=== PATIENT | female | born 1990 | race Caucasian/White ===

== ENCOUNTER 2019-07-22 13:28 | Emergency (ER) | payer OTHER ==
[~2019-07-22] VITALS: Ht 157.5 cm; Wt 75.2 kg
[2019-07-22] MEDS ORDERED: BUPR8SUB SL (13:43)
[2019-07-22] MEDS ORDERED: ZOLO100T PO (13:43)
[2019-07-22 14:41] LABS: ALBUMIN 2.3 GM/DL (3.2-5.2); ALT/SGPT 60 U/L (12-78); BILIRUBIN,DIRECT 0.3 MG/DL (0.0-0.2); BILIRUBIN,TOTAL 0.4 MG/DL (0.2-1.0); BLOOD UREA NITROGEN 14 MG/DL (7-18); CALCIUM LEVEL 8.6 MG/DL (8.5-10.1); CARBON DIOXIDE LEVEL 26 MEQ/L (21-32); CHLORIDE LEVEL 104 MEQ/L (98-107); CREATININE FOR GFR 0.68 MG/DL (0.55-1.30); GLOMERULAR FILTRATION RATE > 60.0 (>60); GLUCOSE, FASTING 113 MG/DL (70-100); POTASSIUM SERUM 4.4 MEQ/L (3.5-5.1); SODIUM LEVEL 135 MEQ/L (136-145); TOTAL PROTEIN 6.1 GM/DL (6.4-8.2)
[2019-07-22] MEDS ORDERED: [UNRECOGNIZED DRUG - OTHER] IM ONE (15:15)
[2019-07-22] MEDS ORDERED: IMMUNE GLOBULIN 10% 0 GM in IV 1 EA IV SCH (15:15)
[2019-07-22 16:04] VITALS: BP 135/70
[2019-07-22] MEDS ORDERED: PRENTAB9 PO (19:24)
[2019-07-23 08:30] LABS: HEPATITIS B SURFACE ANTIGEN NEGATIVE (NEGATIVE)
[2019-07-23 08:57] LABS: HEPATITIS B CORE ANTIBODY IGM NEGATIVE (NEGATIVE)
[2019-07-23 08:59] LABS: HEPATITIS A ANTIBODY IGM NEGATIVE (NEGATIVE)
[2019-07-23 09:38] LABS: HEPATITIS C VIRUS ABY INDEX > 11.0 INDEX (<0.8)
== END 2019-07-22 16:05 | disposition home or self-care (01) ==
LOC: M ED 13:28
DX: Z20.5 Contact with and (suspected) exposure to viral hepatitis (principal); B18.2 Chronic viral hepatitis C; O99.343 Other mental disorders complicating pregnancy, third trimester; Z3A.39 39 weeks gestation of pregnancy; Z79.899 Other long term (current) drug therapy

== ENCOUNTER 2019-07-22 18:25 | Inpatient (IN) | payer OTHER ==
[~2019-07-22] VITALS: Ht 160 cm; Wt 74.6 kg
[~2019-07-22 18:25] MED LIST: BUPR8SUB SL; ZOLO100T PO
[2019-07-22 18:40] VITALS: BP 129/78
[2019-07-22] MEDS ORDERED: PRENTAB9 PO (19:24)
[2019-07-22 20:43] LABS: HEMATOCRIT 36.3 % (36.0-47.0); HEMOGLOBIN 12.4 g/dl (12.0-15.5); MEAN CORPUSCULAR HEMOGLOBIN 30.3 pg (27.0-33.0); MEAN CORPUSCULAR HGB CONC 34.2 g/dl (32.0-36.5); MEAN CORPUSCULAR VOLUME 88.8 fl (80.0-96.0); PLATELET COUNT, AUTOMATED 164 10^3/uL (150-450); RED BLOOD COUNT 4.09 10^6/uL (4.00-5.40); WHITE BLOOD COUNT 8.8 10^3/uL (4.0-10.0)
[2019-07-22] MEDS ORDERED: OXYTOCIN 30 UNITS IN 0.9% NaCl 500ML IV BAG (J2590) As Ordered ONE (22:00)
--- NOTE | 2019-07-22 22:06 | HPEPDOC ---
Obstetrical History & Physical General Date of Admission Jul 22, 2019 at 19:22 History of Present Illness 29-year-old 5, para 2 at 39 weeks 4 days estimated gestational age with EDC of 07/24/2019, presents with complaints of contractions. She presents as an unregistered patient with limited care. She is been incarcerated during this and currently is part of substance abuse treatment program. She reports contractions throughout the day that of increasing intensity and frequency. She reports active movements. Denies any vaginal bleeding or leakage fluid. Chief Complaint: Contractions, term Information Provided By: Patient Age: 29 : 5 Term: 2 Livin Care Care: Limited Care Dating Final EDC: Jul 24, 2019 Past Medical History Past Obstetrical History : Past Obstetrical History: Multigravida Type of Delivery: Spontaneous Vaginal Del. Complications: No Past Medical History Medical History Hepatitis C and substance abuse Surgical History: Tonsilectomy Social History Marital Status: Single Psychosocial History: No pertinent psych hx * Smoker: non-smoker Allergies Coded Allergies: No Known Allergies (Unverified , 07/13/19) Medications Scheduled No.137/Iron/Folic Acd ( Vitamin Tablet) 1 Each Tablet, 1 TAB PO DAILY Sertraline Hcl (Zoloft) 100 Mg Tablet, 1.5 TAB PO DAILY Scheduled PRN Buprenorphine HCl (Buprenorphine HCl) 8 Mg Tab.subl, 8 MG SL BIDP PRN for WITHDRAWAL SYMPTOMS Physical Examination Physical Examination GENERAL: Alert and oriented times three. BREAST: . ABDOMEN: Gravid and non-tender to touch. FETUS: Is vertex (VTX) by sterile vaginal examination (SVE), fetus is vertex (VTX) by Dave. HEART RATE: Regular rate and rhythm. LUNGS: Clear to auscultation (CTA). Vital Signs/I&O Vital Signs Date Time Temp Pulse Resp B/P (MAP) Pulse Ox O2 Delivery O2 Flow Rate FiO2 07/22/19 18:40 97.6 103 16 129/78 (95) Laboratory Data 24H LABS Laboratory Tests 2 07/22/19 19:45: Serology Scanned Report Hepatitis B Testing 07/22/19 20:30: Nucleated Red Blood Cells % (auto) 0.0 CBC/BMP Laboratory Tests 07/22/19 20:30 Pertinent Laboratoy Data Blood Type: A- RBC Antibody Screen: Negative Hepatitis B: Negative Rapid Plasma Reagin: Nonreactive Group B Streptococcus: Negative Anatomy Ultrasound Placenta Location: Posterior Vaginal Examination Dilation: 6 cm Effacement: 80% Station: -1 Cervical Consistency: Soft Cervical Position: Anterior Assessment Heart Rate (FHR): 130 Variability: Moderate Accelerations: Positive Tocometer Contractions: Yes Frequency: every 3-7 min. Assessment/Plan Assessment 1. 29-year-old 5, para 2 at 39 weeks 4 days estimated gestational age here in active labor. 2. Reassuring status Plan Admit and orient. Configurator and consent. Group B Streptococcus (GBS) negative. Labs and intravenous (IV) per unit protocol. Counseled on Pitocin and induction of labor (IOL). Lactated Ringers (LR): Bolus mL, then at mL/hr. Anticipate normal spontaneous delivery (). C-S as appropriate. ARCELIA TURNER MD. Jul 22, 2019 22:06
[2019-07-22] MEDS ORDERED: OXYTOCIN DRIP 30 UNITS in IV 1 EA IV SCH (22:33)
--- NOTE | 2019-07-22 22:38 | DNPDOC ---
[facility] Delivery Note Delivery Note DATE OF DELIVERY: 07/22/2019 TIME OF : 2219 GENDER:, Male. APGARS: 8 and 9. WEIGHT:, 3360 grams or 7 pounds 7 ounces. LACERATIONS: None ANESTHESIA:. None. COUNTS: 5 laparotomy sponges accounted for prior to and after delivery. . DELIVERY NOTE: 07/22/2019, had a spontaneous vaginal delivery of viable male , Apgars 8 and 9. Weight was 3360 g, 7 lbs. 7 oz. Head was delivered occiput anterior (OA). Nuchal cord was manually reduced followed by delivery of the shoulders and corpus. was handed to mom with a good cry. Cord was clamped times two and was cut. Placenta was then drained and delivered grossly intact. A premixed bag of 500 mL of normal saline with 30 units of Pitocin was then bolused along with uterine massage until the uterus was firm. On inspection cervix, vagina, perineum was grossly intact and hemostatic. Mom and baby in recovery on stable condition. Mom's decided to maintain the son, Marcial NEWTONARCELIA Grayson MD. Jul 22, 2019 22:38
[2019-07-22] MEDS: ACETAMINOPHEN 500 MG TAB PO PRN (22:43)
[2019-07-22] MEDS: IBUPROFEN 800 MG TAB PO PRN (22:44)
[2019-07-22] MEDS ORDERED: ACETAMINOPHEN TAB 650MG DOSE (2X325MG) PO PRN (22:45)
[2019-07-22] MEDS ORDERED: RHOGAM 300 MCG (1500 IU) INJ (J2790) IM SCH (22:45)
[2019-07-22] MEDS ORDERED: METHYLERGONOVINE MALEATE 0.2 MG TAB PO PRN (22:45)
[2019-07-22] MEDS ORDERED: MOM 30ML SUSPENSION UDC PO PRN (22:45)
[2019-07-22] MEDS ORDERED: DIBUCAINE 1% OINTMENT 30GM TOP PRN (22:45)
[2019-07-22] MEDS ORDERED: MEASLES,MUMPS,RUBELLA VACCINE INJ (MMR-II) (90707) SC SCH (22:45)
[2019-07-23] VITALS: BP 136/63
[2019-07-23] MEDS: ACETAMINOPHEN 500 MG TAB PO PRN ×2 (06:55→15:09)
[2019-07-23] MEDS: IBUPROFEN 800 MG TAB PO PRN ×2 (06:55→21:34)
[2019-07-23 06:57] VITALS: BP 137/77
[2019-07-23] MEDS: PRENATAL VITAMINS CHEWABLE TABLET PO SCH (07:58)
--- NOTE | 2019-07-23 08:03 | IPNPDOC ---
Progress Note Date of Service: Jul 23, 2019 Day#: 1 Progress Note S: Doing well w/o complaints. O: vss, AF gen: well appearing abd: soft, nttp ext: neg calf tenderness A/P: PPD#1 s/p , recovering in stable condition -routine care -d/c tomorrow Cassie Rosenberg MD VS, I&O, 24H, Fishbone Vital Signs/I&O Vital Signs Date Time Temp Pulse Resp B/P (MAP) Pulse Ox O2 Delivery O2 Flow Rate FiO2 07/23/19 06:57 98.5 53 18 137/77 (97) I&O- Last 24 Hours up to 6 AM 07/23/19 06:00 Output Total 600 ml Balance -600 ml Laboratory Data 24H LABS Laboratory Tests 2 07/22/19 19:45: Serology Scanned Report Hepatitis B Testing 07/22/19 20:30: Nucleated Red Blood Cells % (auto) 0.0, Hepatitis B Surface Antigen (Rapid) NEGATIVE CBC/BMP Laboratory Tests 07/22/19 20:30 CASSIE ROSENBERG MD. Jul 23, 2019 08:03
[2019-07-23 10:30] LABS: HIV 1&2 SCREEN CENTAUR NEGATIVE (NEGATIVE)
[2019-07-23] MEDS: SERTRALINE HCL 50 MG TAB PO SCH (16:21)
[2019-07-23] MEDS: NICOTINE POLACRILEX 2 MG GUM PO PRN ×3 (16:21→21:34)
[2019-07-23 18:03] VITALS: BP 121/72
[2019-07-24] MEDS: DOCUSATE SODIUM 100 MG CAP PO PRN ×2 (00:03→21:33)
[2019-07-24] MEDS: ACETAMINOPHEN 500 MG TAB PO PRN ×3 (00:03→21:33)
[2019-07-24] MEDS: NICOTINE POLACRILEX 2 MG GUM PO PRN ×5 (00:04→21:33)
[2019-07-24 05:59] VITALS: BP 130/67
--- NOTE | 2019-07-24 07:41 | IPNPDOC ---
Progress Note Date of Service: Jul 24, 2019 Day#: 2 Progress Note SUBJECT: Peg is a 29-year-old 5 now Para 3 status post uncomplica vladimir spontaneous vaginal delivery. was complicated by inadequate care, incarceration and drug rehab program. She is doing well day # 2. She has been ambulating, voiding spontaneously without issue and tolerating regular diet. Breast feeding and pumping. 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 Pain is well controlled. OBJECTIVE: VITAL SIGNS: Within normal limits, afebrile. Alert and oriented times three. Breath sounds clear to auscultation. Heart rate: Regular rate and rhythm, no murmurs, rubs or gallops. Abdomen: Fundus firm at U-2. Soft, NTTP. Minimal lochia. ASSESSMENT: day #2. PLAN: 1. Discharge to home tomorrow. 2. Tylenol and Motrin for pain. 3. Encourage breast feeding, pumping and ambulation. 4. Routine care. VS, I&O, 24H, Fishbone Vital Signs/I&O Vital Signs Date Time Temp Pulse Resp B/P (MAP) Pulse Ox O2 Delivery O2 Flow Rate FiO2 07/24/19 05:59 97.6 62 16 130/67 (88) 98 Room Air Sonya Schwartz CNM Jul 24, 2019 07:41
[2019-07-24] MEDS: PRENATAL VITAMINS CHEWABLE TABLET PO SCH (09:46)
[2019-07-24] MEDS: IBUPROFEN 600 MG TAB PO PRN ×2 (09:46→18:28)
[2019-07-24] MEDS: SERTRALINE HCL 50 MG TAB PO SCH (09:50)
[2019-07-24 18:00] VITALS: BP 130/67
[2019-07-25 06:00] VITALS: BP 134/85
[2019-07-25] MEDS ORDERED: ACET-683 PO (08:40)
[2019-07-25] MEDS ORDERED: IBUP80TA PO (08:40)
[2019-07-25] MEDS: SERTRALINE HCL 50 MG TAB PO SCH (08:51)
[2019-07-25] MEDS: IBUPROFEN 600 MG TAB PO PRN (08:51)
[2019-07-25] MEDS: NICOTINE POLACRILEX 2 MG GUM PO PRN ×2 (08:52→12:32)
[2019-07-25] MEDS: PRENATAL VITAMINS CHEWABLE TABLET PO SCH (08:52)
== END 2019-07-25 15:50 | disposition home or self-care (01) | DRG 560 ==
LOC: M LDO 18:25 → M LDI 19:22 → M OBS 23:30
PROVIDERS: ADMIT Obstetrics & Gynecology; ATTEND Obstetrics & Gynecology
PROC: 10E0XZZ Delivery of Products of Conception, External Approach (ICD-10-PCS; principal; 2019-07-22)
DX: O98.42 Viral hepatitis complicating childbirth (principal); Z37.0 Single live birth; Z3A.39 39 weeks gestation of pregnancy; B18.2 Chronic viral hepatitis C; O09.30 Supervision of pregnancy with insufficient antenatal care, unspecified trimester

== ENCOUNTER → 2019-08-03 | Outpatient (CLI) | payer MEDICAID, OTHER ==
[~2019-08-03] MED LIST changes: +ACET-683 PO; +IBUP80TA PO; +PRENTAB9 PO
[2019-08-03 17:08] LABS: APPEARANCE, URINE CLEAR (CLEAR); BACTERIA, URINE AUTO NEGATIVE (NEGATIVE); BILIRUBIN, URINE AUTO NEGATIVE (NEGATIVE); BLOOD, URINE BLOOD 3+ (NEGATIVE); COLOR, URINE YELLOW (YELLOW); GLUCOSE, URINE (UA) AUTO NEGATIVE (NEGATIVE); KETONE, URINE AUTO NEGATIVE (NEGATIVE); LEUKOCYTE ESTERASE, URINE AUTO 2+ (NEGATIVE); MUCUS, URINE SMALL (NEGATIVE); NITRITE, URINE AUTO NEGATIVE (NEGATIVE); PROTEIN, URINE AUTO NEGATIVE (NEGATIVE); RBC, URINE AUTO 3 /HPF (0-3); SPECIFIC GRAVITY URINE AUTO 1.011 (1.002-1.035); SQUAMOUS EPITHELIAL CELL UR AU 1 /HPF (0-6); UROBILINOGEN, URINE AUTO 0.2 mg/dL (0.0-2.0); WBC, URINE AUTO 8 /HPF (0-3)
[2019-08-03 17:23] LABS: BASO % 0.5 % (0.0-1.0); EOS # 0.1 10^3/uL (0.0-0.5); EOS % 1.8 % (0.0-3.0); HEMATOCRIT 39.6 % (36.0-47.0); HEMOGLOBIN 13.1 g/dl (12.0-15.5); LYMPH # 2.1 10^3/uL (1.5-5.0); LYMPH % 38.8 % (24.0-44.0); MEAN CORPUSCULAR HEMOGLOBIN 30.2 pg (27.0-33.0); MEAN CORPUSCULAR HGB CONC 33.1 g/dl (32.0-36.5); MEAN CORPUSCULAR VOLUME 91.2 fl (80.0-96.0); MONO # 0.3 10^3/uL (0.0-0.8); MONO % 5.7 % (0.0-5.0); NEUTROPHILS # 2.9 10^3/uL (1.5-8.5); NEUTROPHILS % 52.8 % (36.0-66.0); PLATELET COUNT, AUTOMATED 275 10^3/uL (150-450); RED BLOOD COUNT 4.34 10^6/uL (4.00-5.40); WHITE BLOOD COUNT 5.5 10^3/uL (4.0-10.0)
[2019-08-03 17:40] LABS: BLOOD UREA NITROGEN 24 MG/DL (7-18); CARBON DIOXIDE LEVEL 27 MEQ/L (21-32); CHLORIDE LEVEL 106 MEQ/L (98-107); GLOMERULAR FILTRATION RATE > 60.0 (>60); GLUCOSE, FASTING 92 MG/DL (70-100); POTASSIUM SERUM 4.1 MEQ/L (3.5-5.1); SODIUM LEVEL 140 MEQ/L (136-145)
[2019-08-03 17:41] LABS: ALBUMIN 3.1 GM/DL (3.2-5.2); ALT/SGPT 142 U/L (12-78); BILIRUBIN,TOTAL 0.2 MG/DL (0.2-1.0); CALCIUM LEVEL 8.6 MG/DL (8.5-10.1)
== END ==
LOC: M LAB 15:37
PROVIDERS: ATTEND Physician Assistant Medical
DX: Z02.2 Encounter for examination for admission to residential institution (principal)

== ENCOUNTER → 2019-09-22 | Outpatient (CLI) | payer MEDICAID, OTHER ==
[2019-09-24 08:56] LABS: HEPATITIS B SURFACE ANTIBODY NEGATIVE (POSITIVE); HEPATITIS B SURFACE ANTIGEN NEGATIVE (NEGATIVE)
[2019-09-29 08:06] LABS: HEPATITIS A IgG TOTAL Negative (Negative); HEPATITIS C QUANTITATION 3440 IU/mL (.); HEPATITIS C VIRUS GENOTYPE 1a (.)
== END ==
LOC: M LAB 15:08
PROVIDERS: ATTEND Internal Medicine Cardiovascular Disease
DX: B18.2 Chronic viral hepatitis C (principal); B16.9 Acute hepatitis B without delta-agent and without hepatic coma; B15.9 Hepatitis A without hepatic coma

== ENCOUNTER → 2019-10-16 | Outpatient (CLI) | payer OTHER ==
[~2019-10-16] MED LIST changes: +ABIL1TAB11 PO; +GABA-1171 PO; +HYDR50TA70 PO; +NAPR250T4 PO; +NICO2GUM40 PO; +SENN8.6T58 PO
== END ==
LOC: M LABSMTC 08:05
PROVIDERS: ATTEND Anesthesiology
DX: Z01.818 Encounter for other preprocedural examination (principal); Z11.59 Encounter for screening for other viral diseases

== ENCOUNTER 2019-10-19 10:03 | Day surgery (SDC) | payer OTHER ==
[~2019-10-19] VITALS: Ht 157.5 cm; Wt 75.7 kg
[~2019-10-19 10:03] MED LIST changes: +LR 1,000 ML IV ONE; +ceFAZolin SOD 1 GM in D5W MINI-BAG PLUS 50 ML IV ONE
[2019-10-19] MEDS ORDERED: ePHEDrine SULFATE 25 MG/5 ML(5MG/ML) SYRINGE As Ordered ONE (10:22)
[2019-10-19] MEDS ORDERED: ONDANSETRON 4MG/2ML VIAL As Ordered ONE ×2 (10:22→13:52)
[2019-10-19] MEDS ORDERED: MIDAZOLAM INJ 2MG/2ML VIAL (J2250 PER 1MG) As Ordered ONE (10:22)
[2019-10-19] MEDS ORDERED: fentaNYL 250 MCG/5 ML INJECTION (J3010) As Ordered ONE (10:22)
[2019-10-19] MEDS ORDERED: KETOROLAC 60 MG/2 ML VIAL As Ordered ONE (10:22)
[2019-10-19] MEDS ORDERED: PHENYLephrine HCL 500 MCG/5 ML (100MCG/ML) SYRINGE (J2370) As Ordered ONE (10:22)
[2019-10-19] MEDS ORDERED: propofoL 200 MG/20 ML VIAL As Ordered ONE (10:23)
[2019-10-19] MEDS ORDERED: ROCURONIUM BROMIDE 50 MG/5 ML VIAL As Ordered ONE (10:23)
[2019-10-19] MEDS ORDERED: LIDOCAINE 2% 100MG/5ML SDV (FOR ANES.) As Ordered ONE (10:23)
[2019-10-19] MEDS ORDERED: dexameTHASONE 4 MG/ML 1ML VIAL (J1100 PER 1MG) As Ordered ONE (10:23)
[2019-10-19] MEDS ORDERED: SUGAMMADEX SODIUM 500 MG/5 ML VIAL (BRIDION) As Ordered ONE (10:23)
[2019-10-19] MEDS ORDERED: BUPIVACAINE/EPIN 0.25% 30 ML VIAL As Ordered ONE (11:43)
[2019-10-19] MEDS ORDERED: ACETAMINOPHEN 1000MG 100ML IV BTL (OFIRMEV) (J0131 PER 10MG) As Ordered ONE (12:11)
[2019-10-19] MEDS ORDERED: GLYCOPYRROLATE INJ 0.2 MG/ML 2 ML VIAL As Ordered ONE (12:23)
[2019-10-19] MEDS ORDERED: BUPIVACAINE LIPOSOME/PF 1.3% 20ML VIAL (13.3MG/ML)(EXPAREL)(C9290 PER1MG) As Ordered ONE (13:15)
--- NOTE | 2019-10-19 13:56 | RO ---
DATE OF PROCEDURE: 10/19/2019 PREOPERATIVE DIAGNOSIS: Symptomatic gallstones. POSTOPERATIVE DIAGNOSIS: Symptomatic gallstones. PROCEDURE: Laparoscopic cholecystectomy. SURGEON: Perry Galdamez Jr., MD INFORMATION SYSTEMS OPERATOR: BRUCE Barrientos (provided gallbladder retraction, abdominal wall closure, trocar placement) ANESTHESIA: General endotracheal anesthesia. ESTIMATED BLOOD LOSS (EBL): Minimal. FLUIDS: Crystalloid. FINDINGS: The patient had a very inflamed thickened gallbladder with thickening of the cystic duct. BRIEF OPERATIVE SUMMARY: The patient was brought to the operating room and was given general anesthesia. After adequate anesthesia and preoperative antibiotics were given, the patient was prepped and draped in the usual sterile fashion. Next, a supraumbilical incision was made with skin knife. Blunt dissection was carried down to fascia. Fascia was entered with a Veress needle and inflated to 15 mm of pressure. A dilating 10 mm trocar was placed under direct visualization. An epigastric and two lateral trocars were placed. A great deal of adhesions of the gallbladder up against the omentum. These were taken down with hook cautery; and eventually once this was mobilized, the gallbladder was grasped, but it was tensely distended. Thus, an aspiration needle was used to remove the fluid within this, and it was essentially a mucocele at this point suggesting cystic duct obstruction for a long period of time. In any case, the gallbladder was then grasped and retracted superiorly, and the very thickened peritoneum overlying the gallbladder was taken down circumferentially around the neck of the gallbladder using some blunt dissection and the hook cautery, and the cystic artery was well visualized, was seen going up onto the gallbladder, involved to some extent, as well. After a good window was created behind the neck of the gallbladder and the critical view of safety was obtained, clips were placed on the cystic artery, and then the neck of the gallbladder was followed down onto the cystic duct, and the cystic duct was gradually tapered down. However, it was still too big for a simple 10 mm clip; and, thus, I placed a polydioxanone suture (PDS) EndoLoop on the transected cystic duct, and the gallbladder then was removed from the gallbladder bed using electrocautery, placed in an EndoCatch bag, and brought out through the umbilicus. Given that there were many many stones within the gallbladder, I did incise the fascia slightly to make the incision larger to allow the delivery of the gallbladder itself. This delivered nicely, and the midline incision was closed with 0 Vicryl in the fascial layer, and all incisions were closed with 4-0 Vicryl. Steri-Strips and a dry sterile dressing were applied. The patient was awakened, extubated, and brought to recovery room awake, alert, and hemodynamically stable. Sponge and needle counts correct times two.
[2019-10-19] MEDS ORDERED: LR 1,000 ML IV SCH ×2 (14:00)
[2019-10-19] MEDS ORDERED: oxyCODONE 5MG TAB PO PRN ×2 (14:00→14:45)
[2019-10-19] MEDS ORDERED: ONDANSETRON 4MG/2ML VIAL IV PRN (14:00)
[2019-10-19] MEDS ORDERED: fentaNYL 100 MCG/2 ML INJECTION (J3010) IV PRN (14:00)
[2019-10-19 15:40] VITALS: BP 136/77
== END 2019-10-19 15:38 | disposition home or self-care (01) ==
LOC: M SDC 10:03
PROVIDERS: ATTEND Surgery
DX: K80.20 Calculus of gallbladder without cholecystitis without obstruction (principal); K21.9 Gastro-esophageal reflux disease without esophagitis; B18.2 Chronic viral hepatitis C; F41.9 Anxiety disorder, unspecified; F32.9 Major depressive disorder, single episode, unspecified; F11.11 Opioid abuse, in remission; Z79.899 Other long term (current) drug therapy; Z87.891 Personal history of nicotine dependence
CPT/HCPCS: 47562; 88304; C9290; J0131; J0690; J1100; J1885; J2250; J2370; J2405; J3010